=== PATIENT | female | born 1955 | race Caucasian/White ===

== ENCOUNTER 2024-01-06 17:56 | Emergency (ER) | payer OTHER, SELFPAY ==
[2024-01-06 18:05] VITALS: BP 128/78
--- NOTE | 2024-01-06 21:32 | ED.GENMED ---
History of Present Illness
General
Chief Complaint: Head Injury
Time Seen by Provider: 01/06/24 20:19
Travel History
Have you had any contact with someone who has COVID-19?: No
Do you have any symptoms of coronavirus? Fever > 100 degrees, chills, cough, shortness of breath, sore throat, loss of taste or smell, muscle aches, or headache?: No
History of Present Illness
History of Present Illness:
68-year-old female presents to the emergency room after falling in the shower. Patient states get dizzy and fell striking her head. No chest pain shortness of breath. Patient has had sleep issues and has not slept more than an hour to couple
days. She does not take any anticoagulants.
Past History
Past History
ED Past Medical History: HTN and Other (Renal cysts)
ED Past Surgical History: Appendectomy, Cholecystectomy, Gynecological, Orthopedic and Other (Gastric bypass, hysterectomy)
Social History
Tobacco: Non-smoker
Alcohol: Occasional
Drug: None
Living: alone
Employment: Employed (RN)
Phy Exam
Physical Exam
Physical Exam:
General: Awake, Alert, Oriented X3. No acute distress.
Vitals: unremarkable
Head: 3 cm laceration right eyebrow which goes through much of the eyebrow.
Eyes: Pupils equal, EOMI
Throat: Airway intact, no exudates
Neck: Trachea midline
Lungs: Clear and equal b/l
Heart: Regular rate, no murmurs
Abd: Soft, Nontender, No pulsatile mass
Neuro: Cranial nerves intact, muscle strength equal bilaterally, cerebellar exam normal
Skin: Warm, dry, no rash
Extremities: pulses equal b/l, no edema
Course
Orders/Labs/Results
Orders:
Orders
01/06/24 19:[address] [CT Head W/o Iv Contrast] Urgent
Comment:
Reason For Exam: FALL
Vital Signs
Initial and Last Documented VS:
Initial Vital Signs
Temp Pulse Resp BP Pulse Ox
98.1 F 94 18 128/78 98
01/06/24 18:05 01/06/24 18:05 01/06/24 18:05 01/06/24 18:05 01/06/24 18:05
Last Documented Vital Signs
Temp Pulse Resp BP Pulse Ox
98.1 F 94 18 136/78 97
01/06/24 18:05 01/06/24 21:46 01/06/24 21:46 01/06/24 21:46 01/06/24 21:46
Procedures
Laceration Closure
Right Forehead:
Status of Wound: clean
Description of Wound Edges: ragged
Preparation: cleaned with saline
Anesthesia: 1% Lidocaine with epi
Revision/Debridement: minor revision
Wound exploration: explored to base- no FB
Type of Closure: layered closure
Skin Closure Material: 5-0 prolene and 5-0 vicryl
Number of sutures: 8
Additional information:
2 subcutaneous vicryl sutures and 6 simple interrupted sutures
MDM/Problems Addressed
Differential Diagnosis Includes:
Intracranial injury, vasovagal syncope, laceration, fracture
MDM/Problems Addressed:
CT of the head shows no acute abnormality. Laceration repaired with a layered approach. Normal vital signs here. Patient ambulate without difficulty. Patient stable for discharge home. Sutures to be removed in 5 to 7 days.
*Radiology
Radiology exam reviewed: radiology read reviewed
*Critical Care Note
Total Time (30-74mins, 75-104mins- exclusive of procedures): Not Applicable
ED Attending Note
-
Portions of this chart may have been created with voice recognition software.� Occasional wrong word or��sound alike� substitutions may have occurred due to the inherent limitations of voice recognition software.
Discharge Plan
Departure
Patient Disposition: Home (Routine Discharge)
Date of Disposition: 01/06/24
Time of Disposition: 21:38
Patient with high blood pressure during this ER visit?: No
Condition: Good
Discharge Problem:
Head injury, Laceration of eyebrow, right
Instructions: Head Injury in Adults (DC), Laceration Repair With Stitches (DC)
Prescriptions:
No Action
levofloxacin 500 MG tablet
500 mg PO DAILY Qty: 7 0RF
azithromycin 250 MG tablet
250 mg PO DAILY Qty: 6 0RF
Referrals:
Suma Keen DO [Family Provider] -
Sg Lindo MD [Active] -
Activity Restrictions/Additional Instructions:
The stitches should be removed in 5 to 7 days. I have given you the name of a plastic surgeon to follow up with.
Interventions
Interventions:
*Risk Screen - Suicide Last Done: 01/06/24 20:52
*General Assessment Last Done: 01/06/24 20:52
*Neglect/Abuse Screening Last Done: 01/06/24 20:52
ED- Fall Risk Assessment Last Done: 01/06/24 20:52
*Nursing Disposition Last Done: 01/06/24 21:55
ED- Neurological Assessment Last Done: 01/06/24 20:52
ED-Skin Assessment Last Done: 01/06/24 20:52
Discharge Date and Time
Discharge Date/Time: 01/06/24 21:55
Print Language: UKRAINIAN
[2024-01-06 21:46] VITALS: BP 136/78
== END 2024-01-06 21:55 | disposition home or self-care (01) ==
LOC: EMR 17:56
PROVIDERS: EMERGENCY PHYSICIAN Emergency Medicine; FAMILY PHYSICIAN Family Medicine
DX: S09.90XA Unspecified injury of head, initial encounter (principal); S01.111A Laceration without foreign body of right eyelid and periocular area, initial encounter; W18.2XXA Fall in (into) shower or empty bathtub, initial encounter; Y93.E1 Activity, personal bathing and showering; I10 Essential (primary) hypertension
CPT/HCPCS: 99284; 12011; 70450